=== PATIENT | male | born 1940 | race Caucasian/White ===

== ENCOUNTER 2022-04-16 22:01 | Emergency (ER) | payer OTHER, MEDICARE ==
[2022-04-16] MEDS ORDERED: Tranexamic Acid 1,000 MG/10 ML VIAL ONE (22:26)
[2022-04-16] MEDS ORDERED: Lidocaine 1% PF 5 ML VIAL ONE (22:26)
[2022-04-16 23:05] LABS: #Basophils 0.1 thou/uL (0.0-0.2); #Eosinphils 0.2 thou/uL (0.0-0.7); #Lymphocytes 1.1 thou/uL (1.20-3.40); #Monocytes 0.8 thou/uL (0.11-0.59); #Neutrophils 6.3 thou/uL (1.40-6.50); %Basophils 0.6 % (0.0-1.0); %Eosinophils 2.2 % (0.0-10.0); %Lymphocytes 13.1 % (21.0-51.0); Mean Corpuscular HGB CONC 34.2 g/dL (32.0-36.0); Mean Corpuscular Hemoglobin 34.8 pg (27.0-31.0); Mean Platelet Volume 6.4 fL (7.4-10.4); Platelet Count 283 thou/uL (130-400); Red Blood Cell (RBC) Count 3.75 mill/uL (4.70-6.10); White Blood Cell (WBC) Count 8.4 thou/uL (4.8-10.8)
[2022-04-16 23:26] LABS: ALT (SGPT) 12 U/L (8-55); AST (SGOT) 13 U/L (5-34); Albumin 3.9 g/dL (3.4-4.8); Alkaline Phosphatase 80 U/L (40-110); BUN (Urea Nitrogen) 14 mg/dL (8.4-25.7); Bilirubin, Total 0.2 mg/dL (0.2-1.2); Calc. Creatinine Clearance 0 mL/min (70-130); Calcium 8.9 mg/dL (7.8-10.44); Chloride 102 mmol/L (98-107); Estimated GFR 89; Globulin 2.8 g/dL (2.4-3.5); Glucose 114 mg/dL (83-110); Potassium 3.7 mmol/L (3.5-5.1); Protein, Total 6.7 g/dL (5.8-8.1); Sodium 137 mmol/L (136-145)
[2022-04-16 23:36] LABS: Carbon Dioxide 23 mmol/L (23-31)
[2022-04-16 23:40] LABS: Anion Gap 16 mmol/L (10-20)
[2022-04-17] MEDS ORDERED: Boostrix 0.5 ML (Tdap) VIAL ONE (00:46)
[2022-04-17] MEDS ORDERED: CEFAZOLIN 2 GM VIAL ONE (00:46)
[2022-04-17] MEDS ORDERED: Lidocaine 1% PF 5 ML VIAL ONE ×2 (00:46→01:40)
[2022-04-17] MEDS ORDERED: Bacitracin 1 PK ONE (02:16)
== END 2022-04-17 04:36 | disposition home or self-care (01) ==
LOC: ERS 22:01
DX: S01.01XA Laceration without foreign body of scalp, initial encounter (principal); W18.09XA Striking against other object with subsequent fall, initial encounter
CPT/HCPCS: 12004; 36415; 70450; 71045; 72125; 80053; 82553; 84484; 85025; 90715; 93005; 96374; J0690

== ENCOUNTER 2023-11-09 05:52 | Day surgery (SDC) | payer OTHER ==
[2023-11-07 12:19] VITALS: BMI 35.5
[2023-11-09] MEDS ORDERED: Lidocaine 2% PF 5 ML VIAL ONE (06:31)
[2023-11-09] MEDS ORDERED: Thrombin 5000 UNITS/5 ML VIAL ONE (06:31)
[2023-11-09] MEDS ORDERED: Rocuronium Bromide 10 MG/ML (10ML VIAL) ONE (06:31)
[2023-11-09] MEDS ORDERED: EPINEPHrine 1 MG/ML VIAL ONE (06:31)
[2023-11-09] MEDS ORDERED: PROPOFOL 20 ML ONE (06:31)
[2023-11-09] MEDS ORDERED: Bupivacaine PF 0.5% 30 ML VIAL ONE (06:31)
[2023-11-09] MEDS ORDERED: fentaNYL PF 100 MCG/2 ML SYRINGE ONE (06:31)
[2023-11-09 08:41] LABS: Hematocrit 35.4 % (42.0-52.0); Hemoglobin 11.8 g/dL (14.0-18.0); Mean Corpuscular HGB CONC 33.3 g/dL (32.0-36.0); Mean Corpuscular Hemoglobin 33.1 pg (27.0-31.0); Mean Corpuscular Volume 99.2 fl (78.0-98.0); Mean Platelet Volume 8.8 fL (7.4-10.4); Platelet Count 258 10x3/uL (130-400); RBC Distribution Width 13.2 % (11.5-14.5); Red Blood Cell (RBC) Count 3.57 mill/uL (4.70-6.10); White Blood Cell (WBC) Count 7.6 10x3/uL (4.8-10.8)
[2023-11-09 08:56] LABS: Anion Gap 12 mmol/L (10-20); BUN (Urea Nitrogen) 15 mg/dL (8.4-25.7); Calc. Creatinine Clearance 104 mL/min (70-130); Calcium 9.2 mg/dL (7.8-10.44); Carbon Dioxide 28 mmol/L (23-31); Chloride 106 mmol/L (98-107); Estimated GFR 89; Glucose 109 mg/dL (83-110); Potassium 4.8 mmol/L (3.5-5.1); Sodium 141 mmol/L (136-145)
[2023-11-09] MEDS ORDERED: CEFAZOLIN 2 GM VIAL ONE ×2 (09:04→13:55)
[2023-11-09] MEDS ORDERED: Sodium Chloride 0.9% 100 ML ONE ×2 (09:05→13:55)
[2023-11-09] MEDS ORDERED: SUGAMMADEX SODIUM 200 MG/2 ML VIAL ONE (10:02)
[2023-11-09] MEDS ORDERED: fentaNYL 50 mcg/mL 1 mL Vial ONE (11:06)
[2023-11-09] MEDS ORDERED: Tamsulosin HCl 0.4 MG CAP ONE (11:07)
== END 2023-11-09 15:41 | disposition home or self-care (01) ==
LOC: SDC 05:52
PROVIDERS: ATTEND Neurological Surgery
PROC: 01NB0ZZ Release Lumbar Nerve, Open Approach (ICD-10-PCS; principal; 2023-11-09)
DX: M48.061 Spinal stenosis, lumbar region without neurogenic claudication (principal); M54.16 Radiculopathy, lumbar region; I10 Essential (primary) hypertension; Z87.891 Personal history of nicotine dependence; Z79.899 Other long term (current) drug therapy
CPT/HCPCS: 36415; 80048; 85027; 86850; 86900; 86901; 93005; 93010; J0171; J0665; J2001; J2704; J3010; J3490